=== PATIENT | female | born 1955 | race Caucasian/White ===

== ENCOUNTER 2016-08-14 13:36 | Emergency (ER) | payer OTHER ==
[2016-08-14 14:07] VITALS: BP 114/75
[2016-08-14] MEDS ORDERED: Cephalexin CAP* 500 MG PO ONE (14:45)
--- NOTE | 2016-08-14 14:54 | UC ---
Complaint Female HPI - HPI Summary HPI Summary: 60 yo female with a hx of frequent UTIs presents with concerns of UTI (some incontenence and foul smelling urine) Had bladder stones removed in the fall no f/c some nausea no back or belly pain no hx pyelo - History Of Current Complaint Chief Complaint: UCGU Stated Complaint: UTI SYMPTOMS Time Seen by Provider: 08/14/16 14:36 Hx Obtained From: Patient Hx Last Menstrual Period: NA Onset/Duration: Sudden Onset, Gradual Onset Timing: Constant Severity Initially: Mild Severity Currently: Mild Pain Intensity: 0 Pain Scale Used: 0-10 Numeric Aggravating Factor(s): Nothing Alleviating Factor(s): Nothing Associated Signs And Symptoms: Positive: Nausea Related Hx: Similar Episode/Dx as: - UTI - Allergies/Home Medications Allergies/Adverse Reactions: Allergies Allergy/AdvReac Type Severity Reaction Status Date / Time Latex Allergy Intermediate Rash Verified 02/22/14 19:40 Codeine Allergy Unknown Verified 11/29/14 12:30 Reaction Details Methylphenidate AdvReac hyper Verified 02/22/14 19:40 [From Ritalin] depakote generic AdvReac See Comment Uncoded 02/22/14 19:40 PMH/Surg Hx/FS Hx/Imm Hx Previously Healthy: Yes Endocrine History Of: Reports: Thyroid Disease - hypo Denies: Diabetes Cardiovascular History Of: 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 Bladder Repair. tonsils. throidectomy - half - Family History Known Family History: Positive: Hypertension, Other - colon CA - Social History Alcohol Use: Rare Substance Use Type: None Smoking Status (MU): Never Smoked Tobacco Have You Smoked in the Last Year: No - Immunization History Most Recent Influenza Vaccination: fall 2013 Review of Systems Constitutional: Negative Skin: Negative Eyes: Negative ENT: Negative Respiratory: Negative Cardiovascular: Negative Gastrointestinal: Negative Genitourinary: Negative Motor: Negative Neurovascular: Negative Musculoskeletal: Negative Neurological: Negative Psychological: Negative All Other Systems Reviewed And Are Negative: Yes Physical Exam Triage Information Reviewed: Yes Appearance: Well-Appearing, No Pain Distress, Well-Nourished Vital Signs: Initial Vital Signs Temp 98.3 F 08/14/16 14:04 Pulse 76 02/04/17 14:04 Resp 16 08/14/16 14:04 BP 114/75 08/14/16 14:04 Pulse Ox 98 08/14/16 14:04 Eye Exam: Normal Eyes: Positive: Conjunctiva Clear ENT: Positive: Hearing grossly normal. Negative: TMs normal, Trismus, Muffled/ hoarse voice Dental: Negative: Dental Fracture @ Neck: Positive: Supple, Nontender Respiratory: Positive: Lungs clear, Normal breath sounds, No respiratory distress Cardiovascular: Positive: No Murmur Abdomen Description: Positive: Nontender. Negative: CVA Tenderness (R), CVA Tenderness (L) Bowel Sounds: Positive: Present Musculoskeletal: Positive: ROM Intact, No Edema Neurological: Positive: Alert, Other: - cog wheeling rigidity Psychological Exam: Normal Skin Exam: Normal Complaint Female Dx - Differential Dx/Diagnosis Provider Diagnoses: acute cystitis Discharge - Discharge Plan Condition: Stable Disposition: HOME Prescriptions: Cephalexin CAP* [Keflex CAP*] 500 mg PO BID #14 cap Patient Education Materials: Urinary Tract Infection in Women (ED) Referrals: Missael Mayberry MD [Primary Care Provider] - 4 Days (if not better) Additional Instructions: a urine culture is pending recheck for new or worsening symptoms
== END 2016-08-14 14:59 | disposition home or self-care (01) ==
LOC: UCEAST 13:36
DX: N30.00 Acute cystitis without hematuria (principal); R11.0 Nausea; Z87.440 Personal history of urinary (tract) infections; Z88.5 Allergy status to narcotic agent
CPT/HCPCS: 81002; 87077; 87086; 87186; 99202; A9270-GY; G0463

== ENCOUNTER 2017-08-25 19:09 | Emergency (ER) | payer OTHER ==
[2017-08-25 20:03] VITALS: BP 103/67
[2017-08-25] MEDS ORDERED: Sulfamethox/Trimethoprim DS 800/160* TAB PO ONE (21:58)
--- NOTE | 2017-08-28 17:30 | UC ---
Complaint Female HPI - History Of Current Complaint Chief Complaint: UCGU Stated Complaint: UTI Time Seen by Provider: 08/25/17 20:53 Hx Last Menstrual Period: hysterectomy Pain Intensity: 0 Pain Scale Used: 0-10 Numeric - Allergies/Home Medications Allergies/Adverse Reactions: Allergies Allergy/AdvReac Type Severity Reaction Status Date / Time MS Latex [Latex] Allergy Intermediate Rash Verified 08/25/17 20:04 MS Codeine [Codeine] Allergy Unknown Verified 08/25/17 20:04 Reaction Details nitrofurantoin Allergy See Comment Verified 08/25/17 20:04 [From Macrobid] MS Methylphenidate AdvReac hyper Verified 08/25/17 20:04 [From Ritalin] depakote generic AdvReac See Comment Uncoded 02/22/14 19:40 PMH/Surg Hx/FS Hx/Imm Hx - Surgical History Surgical History: Yes Surgery Procedure, Year, and Place: Hysterectomy. Bladder Repair. tonsils. throidectomy - half - Family History Known Family History: Positive: Hypertension, Other - colon CA - Social History Alcohol Use: Rare Substance Use Type: None Smoking Status (MU): Never Smoked Tobacco Have You Smoked in the Last Year: No - Immunization History Most Recent Influenza Vaccination: fall 2013 Physical Exam Vital Signs: Initial Vital Signs Temp 97.5 F 08/25/17 19:57 Pulse 82 08/25/17 19:57 Resp 16 08/25/17 19:57 BP 103/67 08/25/17 19:57 Pulse Ox 99 08/25/17 19:57 Discharge - Discharge Plan Condition: Stable Disposition: HOME Prescriptions: Sulfamethox/Trimethoprim DS* [Bactrim DS 800/160 TAB*] 1 tab PO BID 7 Days #14 tab Patient Education Materials: Urinary Tract Infection in Women (ED) Referrals: Missael Mayberry MD [Primary Care Provider] - Additional Instructions: as tolerated, Follow up with urology allison
--- NOTE | 2017-08-28 17:32 | UC ---
- Progress Note Progress Note: Urine culture with Aerococcus - most susceptible to PCN. Have her stop Bactrim and start Augmentin 1 tab BID for 7 days. Keep f/u with urology.
--- NOTE | 2017-09-01 15:43 | UC ---
Complaint Female HPI - HPI Summary HPI Summary: Pt p/w dysuria, urinary frequency and urgencyx 1 week. Denies f/c - History Of Current Complaint Chief Complaint: UCGU Stated Complaint: UTI Time Seen by Provider: 08/25/17 20:53 Hx Obtained From: Patient Hx Last Menstrual Period: hysterectomy ?: No Pain Intensity: 0 Pain Scale Used: 0-10 Numeric - Allergies/Home Medications Allergies/Adverse Reactions: Allergies Allergy/AdvReac Type Severity Reaction Status Date / Time MS Latex [Latex] Allergy Intermediate Rash Verified 08/25/17 20:04 MS Codeine [Codeine] Allergy Unknown Verified 08/25/17 20:04 Reaction Details nitrofurantoin Allergy See Comment Verified 08/25/17 20:04 [From Macrobid] MS Methylphenidate AdvReac hyper Verified 08/25/17 20:04 [From Ritalin] depakote generic AdvReac See Comment Uncoded 02/22/14 19:40 PMH/Surg Hx/FS Hx/Imm Hx - Additional Past Medical History Additional PMH: none - Surgical History Surgical History: Yes Surgery Procedure, Year, and Place: Hysterectomy. Bladder Repair. tonsils. throidectomy - half - Family History Known Family History: Positive: Hypertension, Other - colon CA - Social History Alcohol Use: Rare Substance Use Type: None Smoking Status (MU): Never Smoked Tobacco Have You Smoked in the Last Year: No - Immunization History Most Recent Influenza Vaccination: fall 2013 Review of Systems Constitutional: Negative Skin: Negative Eyes: Negative ENT: Negative Respiratory: Negative Cardiovascular: Negative Gastrointestinal: Negative Genitourinary: Dysuria, Frequency, Urgency Motor: Negative Neurovascular: Negative Musculoskeletal: Negative Neurological: Negative Psychological: Negative Is Patient Immunocompromised?: No All Other Systems Reviewed And Are Negative: Yes Physical Exam Triage Information Reviewed: Yes Vital Signs: Initial Vital Signs Temp 36.4 C 08/25/17 19:57 Pulse 82 08/25/17 19:57 Resp 16 08/25/17 19:57 BP 103/67 08/25/17 19:57 Pulse Ox 99 08/25/17 19:57 Eye Exam: Normal ENT Exam: Normal Dental Exam: Normal Neck exam: Normal Neck: Positive: 1 Respiratory Exam: Normal Cardiovascular Exam: Normal Abdomen Description: Positive: Soft. Negative: CVA Tenderness (R), CVA Tenderness (L) Musculoskeletal Exam: Normal Neurological Exam: Normal Psychological Exam: Normal Skin Exam: Normal Complaint Female Dx - Differential Dx/Diagnosis Provider Diagnoses: UTI Discharge - Discharge Plan Condition: Stable Disposition: HOME Prescriptions: Amoxicillin/Clavulanate TAB* [Augmentin TAB 875*] 875 mg PO BID #14 tab Patient Education Materials: Urinary Tract Infection in Women (ED) Referrals: Missael Mayberry MD [Primary Care Provider] - Additional Instructions: as tolerated, Follow up with urology allison
== END 2017-08-25 22:15 | disposition home or self-care (01) ==
LOC: UCEAST 19:09
DX: N39.0 Urinary tract infection, site not specified (principal); B96.89 Other specified bacterial agents as the cause of diseases classified elsewhere; Z90.710 Acquired absence of both cervix and uterus; Z88.8 Allergy status to other drugs, medicaments and biological substances; Z88.1 Allergy status to other antibiotic agents; Z91.040 Latex allergy status
CPT/HCPCS: 81003; 87077; 87086; 99212; A9270-GY; G0463

== ENCOUNTER 2017-11-07 19:06 | Emergency (ER) | payer OTHER ==
[2017-11-07 19:13] VITALS: BP 126/76
--- NOTE | 2017-11-07 19:54 | UC ---
Complaint Female HPI - HPI Summary HPI Summary: 62 yo female with urinary incontinence and urgency x weeks worse today some dysuria no f/c nausea no vomiting - History Of Current Complaint Chief Complaint: UCGU Stated Complaint: UTI Time Seen by Provider: 11/07/17 19:24 Hx Obtained From: Patient Hx Last Menstrual Period: hysterectomy Onset/Duration: Gradual Onset Timing: Constant Severity Initially: Mild Severity Currently: Moderate Pain Intensity: 0 Pain Scale Used: 0-10 Numeric Aggravating Factor(s): Urination - Allergies/Home Medications Allergies/Adverse Reactions: Allergies Allergy/AdvReac Type Severity Reaction Status Date / Time codeine Allergy Unknown Unknown Verified 11/07/17 19:14 Reaction Details divalproex sodium Allergy See Comment Verified 11/07/17 19:17 [From Depakote] latex Allergy Rash Verified 11/07/17 19:14 methylphenidate Allergy HYPER, Verified 11/07/17 19:17 ANXIETY, CONFUSION nitrofurantoin Allergy See Comment Verified 11/07/17 19:17 [From Macrobid] Home Medications: Home Medications Tamsulosin CAP* [Flomax CAP*] 0.4 mg PO DAILY 11/07/17 [History Confirmed ] PMH/Surg Hx/FS Hx/Imm Hx Previously Healthy: Yes - Surgical History Surgical History: Yes Surgery Procedure, Year, and Place: Hysterectomy. Bladder Repair. tonsils. throidectomy - half - Family History Known Family History: Positive: Cardiac Disease, Hypertension, Diabetes, Other - colon CA - Social History Alcohol Use: None Substance Use Type: None Smoking Status (MU): Never Smoked Tobacco Have You Smoked in the Last Year: No - Immunization History Most Recent Influenza Vaccination: fall 2013 Review of Systems Constitutional: Negative Skin: Negative Eyes: Negative ENT: Negative Respiratory: Negative Cardiovascular: Negative Gastrointestinal: Nausea Genitourinary: Dysuria, Frequency, Urgency Motor: Negative Neurovascular: Negative Musculoskeletal: Negative Neurological: Negative Psychological: Negative Is Patient Immunocompromised?: No All Other Systems Reviewed And Are Negative: Yes Physical Exam Triage Information Reviewed: Yes Appearance: Well-Appearing, No Pain Distress, Well-Nourished Vital Signs: Initial Vital Signs Temp 99.0 F 11/07/17 19:09 Pulse 78 11/07/17 19:09 Resp 16 11/07/17 19:09 BP 126/76 11/07/17 19:09 Pulse Ox 99 11/07/17 19:09 Vital Signs Reviewed: Yes Eyes: Positive: Conjunctiva Clear ENT: Positive: Uvula midline. Negative: Nasal congestion, Nasal drainage, Muffled voice Neck: Positive: Supple, Nontender, No Lymphadenopathy Respiratory: Positive: Lungs clear, Normal breath sounds, No respiratory distress Cardiovascular: Positive: RRR, No Murmur Abdomen Description: Positive: Soft. Negative: Nontender - some suprapubic tenderness, CVA Tenderness (R), CVA Tenderness (L) Bowel Sounds: Positive: Present Musculoskeletal: Positive: ROM Intact, No Edema Neurological: Positive: Alert Psychological Exam: Normal Skin Exam: Normal Diagnostics - Laboratory Diagnostic Studies Completed/Ordered: ua (+) leuks (+) nitrite Complaint Female Dx - Differential Dx/Diagnosis Provider Diagnoses: acute cystitis Discharge - Sign-Out/Discharge Documenting (check all that apply): Discharge/Admit/Transfer - Discharge Plan Condition: Stable Disposition: HOME Prescriptions: Cephalexin CAP* [Keflex CAP*] 500 mg PO BID #14 cap Phenazopyridine TAB* [Pyridium TAB*] 100 mg PO TID #6 tab Patient Education Materials: Urinary Tract Infection in Women (DC) Referrals: Missael Mayberry MD [Primary Care Provider] - 3 Days (if not better) Additional Instructions: urine culture pending - Billing Disposition and Condition Condition: STABLE Disposition: HOME
--- NOTE | 2017-11-10 11:10 | UC ---
- Progress Note Progress Note: + UTI pt on Cephalexin await sensitivity Ljj 11/10/2017 No change Discharge - Sign-Out/Discharge Documenting (check all that apply): Discharge/Admit/Transfer - Discharge Plan Condition: Stable Disposition: HOME Prescriptions: Cephalexin CAP* [Keflex CAP*] 500 mg PO BID #14 cap Phenazopyridine TAB* [Pyridium TAB*] 100 mg PO TID #6 tab Patient Education Materials: Urinary Tract Infection in Women (DC) Referrals: Missael Mayberry MD [Primary Care Provider] - 3 Days (if not better) Additional Instructions: urine culture pending - Billing Disposition and Condition Condition: STABLE Disposition: HOME
== END 2017-11-07 19:48 | disposition home or self-care (01) ==
LOC: UCEAST 19:06
DX: N30.00 Acute cystitis without hematuria (principal); B95.7 Other staphylococcus as the cause of diseases classified elsewhere; Z88.5 Allergy status to narcotic agent; Z88.8 Allergy status to other drugs, medicaments and biological substances; Z91.040 Latex allergy status
CPT/HCPCS: 81003; 87077; 87086; 87186; 99212; G0463

== ENCOUNTER 2018-12-29 15:26 | Emergency (ER) | payer OTHER ==
[2018-12-29 16:07] VITALS: BP 109/72
--- NOTE | 2018-12-29 17:55 | UC ---
Abdominal Pain Female HPI - HPI Summary HPI Summary: PT presents with urinary urgency, frequency x 3 days no hematuria. no abd pain no n/v no back pain no fever, chills, rash h/o recurrent UTI and bladder stone meds reviewed - History of Current Complaint Chief Complaint: UCGU Stated Complaint: BURNING URINATION Time Seen by Provider: 12/29/18 17:17 Hx Obtained From: Patient Hx Last Menstrual Period: hysterectomy Severity Initially: Mild Severity Currently: Mild Pain Intensity: 5 Pain Scale Used: 0-10 Numeric Allergies/Adverse Reactions: Allergies Allergy/AdvReac Type Severity Reaction Status Date / Time codeine Allergy Unknown Unknown Verified 12/29/18 16:07 Reaction Details divalproex sodium Allergy See Comment Verified 12/29/18 16:07 [From Depakote] latex Allergy Rash Verified 12/29/18 16:07 methylphenidate Allergy HYPER, Verified 12/29/18 16:07 ANXIETY, CONFUSION nitrofurantoin Allergy See Comment Verified 12/29/18 16:07 [From Macrobid] Home Medications: Home Medications QUEtiapine TAB* [Seroquel 25 MG TAB*] 50 mg PO BEDTIME 12/29/18 [History Confirmed 12/29/18] PMH/Surg Hx/FS Hx/Imm Hx Previously Healthy: Yes Other GI/ History: bladder stone - Surgical History Surgical History: Yes Surgery Procedure, Year, and Place: Hysterectomy. Bladder Repair. tonsils. throidectomy - half - Family History Known Family History: Positive: Cardiac Disease, Hypertension, Diabetes, Other - colon CA, Non-Contributory - Social History Alcohol Use: None Substance Use Type: None Smoking Status (MU): Never Smoked Tobacco Have You Smoked in the Last Year: No - Immunization History Most Recent Influenza Vaccination: fall 2013 Review of Systems All Other Systems Reviewed And Are Negative: Yes Genitourinary: Positive: Dysuria, Frequency, Urgency Physical Exam - Summary Physical Exam Summary: Vital Signs Reviewed: Yes A+Ox3, no distress Eyes: Conjunctiva Clear, PEGGY. EOM intact and full ENT: Hearing grossly normal left TM with cerumen - manual debridement, right TM wnl. turbinates inflammed, mmoist, uvula midline, no exudate, no erythema Neck: Positive: Supple Respiratory: Positive: No respiratory distress, No accessory muscle use + CTA throughout no w/r Cardiovascular: RRR nl s1, s2 no m/r CBT <2 sec abd soft + BS nt/nd no guarding, no distension, no CVA Musculoskeletal Exam: GIRON x 4 without difficulty Strength Intact, ROM Intact Neurological: Positive: Alert, + sensation throughout Psychological: Positive: Normal Response To Family Skin: Positive: no rash, no ecchymosis Triage Information Reviewed: Yes Vital Signs: Initial Vital Signs Temp 97.7 F 12/29/18 16:02 Pulse 77 12/29/18 16:02 Resp 12 12/29/18 16:02 BP 109/72 12/29/18 16:02 Pulse Ox 99 12/29/18 16:02 Abd Pain Female Course/Dx - Course Course Of Treatment: PT with 3 days progressive urinary sx pt with h/o similar urinalysis consist with UTI will culture abx hydrate mortin/apap f/u with PCP manual disimpact cerumen from left ear TM visualized - Differential Dx/Diagnosis Provider Diagnosis: UTI (urinary tract infection), Cerumen impaction Discharge - Sign-Out/Discharge Documenting (check all that apply): Patient Departure All imaging exams completed and their final reports reviewed: No Studies - Discharge Plan Condition: Stable Disposition: HOME Prescriptions: Phenazopyridine TAB* [Pyridium 100 mg TAB*] 100 mg PO TID PRN #9 tab PRN Reason: burning with urination Sulfamethox/Trimethoprim DS* [Bactrim DS 800/160 TAB*] 1 tab PO BID #20 tab Patient Education Materials: Urinary Tract Infection in Women (ED), Cerumen Impaction (ED) Referrals: Missael Mayberry MD [Primary Care Provider] - Additional Instructions: - stay well hydrated - drink plenty of non-alcoholic, non caffinated beverages - your urine will be further tested - if you require any changes to your treatment, we will contact you - this usually take 2 days - Contact your primary doctor to arrange a follow-up appointment next week. Contact your doctor or return with questions or concerns - Take your antibiotics exactly as prescribed until gone - Take pyridium as prescribed for discomfort. This will make your urine blaze orange - this is normal - Okay to alternate ibuprofen (Advil, Motrin) and Tylenol every 3 hours for pain. Take with food - Call your doctor to schedule a follow-up appointment - Billing Disposition and Condition Condition: STABLE Disposition: Home
--- NOTE | 2018-12-31 09:06 | UC ---
- Progress Note Progress Note: Patient lab results reviewed today Urine culture preliminary: Organisms one is pseudomonas aeruginosa more than 100,000 CFU per mL Patient is on Bactrim DS which might not cover Pseudomonas. patient is allergic to nitrofurantoin but not to fluoroquinolones RN to call the patient and advise patient to start on ciprofloxacin which will likely cover Pseudomonas. Stop Bactrim. Information reviewed on [employer] Date: Fluoroquinolones are the only class of antibiotics with antipseudomonal activity that have an oral formulation. There is increased risk of QT prolongation as patient is on quetiapine with increased risk of torsades arrythmia . This is discussed with the patient . We can wait until final culture reports for pseuodomonas or opt for iv antibiotics at hospital . We called the lab and they advised that the sensitivity testing will be available in 10 min . Final sensitivity report: It is sensitive to Cipro I spoke to the pharmacist at the hospital with [facility] and she advised that it is a class B interaction and likely safe for 1 week of ciprofloxacin. This should be discussed with the patient though . I will prescribe the antibiotic to the pharmacy. Course/Dx - Diagnoses Provider Diagnoses: UTI (urinary tract infection), Cerumen impaction Discharge - Sign-Out/Discharge Documenting (check all that apply): Post-Discharge Follow Up All imaging exams completed and their final reports reviewed: No Studies - Discharge Plan Condition: Stable Disposition: HOME Prescriptions: Phenazopyridine TAB* [Pyridium 100 mg TAB*] 100 mg PO TID PRN #9 tab PRN Reason: burning with urination Sulfamethox/Trimethoprim DS* [Bactrim DS 800/160 TAB*] 1 tab PO BID #20 tab Patient Education Materials: Urinary Tract Infection in Women (ED), Cerumen Impaction (ED) Referrals: Missael Mayberry MD [Primary Care Provider] - Additional Instructions: - stay well hydrated - drink plenty of non-alcoholic, non caffinated beverages - your urine will be further tested - if you require any changes to your treatment, we will contact you - this usually take 2 days - Contact your primary doctor to arrange a follow-up appointment next week. Contact your doctor or return with questions or concerns - Take your antibiotics exactly as prescribed until gone - Take pyridium as prescribed for discomfort. This will make your urine blaze orange - this is normal - Okay to alternate ibuprofen (Advil, Motrin) and Tylenol every 3 hours for pain. Take with food - Call your doctor to schedule a follow-up appointment - Billing Disposition and Condition Condition: STABLE Disposition: Home
== END 2018-12-29 18:10 | disposition home or self-care (01) ==
LOC: UCEAST 15:26
DX: N39.0 Urinary tract infection, site not specified (principal); H61.22 Impacted cerumen, left ear; Z88.5 Allergy status to narcotic agent; Z91.040 Latex allergy status; Z87.440 Personal history of urinary (tract) infections
CPT/HCPCS: 81003; 87077; 87086; 87186; 99212; G0463

== ENCOUNTER 2019-05-05 14:17 | Emergency (ER) | payer OTHER ==
--- OUTSIDE RECORDS SUMMARY | 2019-05-05 14:22 | XMS REPORT | Summary of Care ---
:1955 Author Organization [facility] Address [address] [place] [address] Care Team Providers Name Role Phone Missael Mayberry David Primary Care Provider Reason for Visit Reason Comments Sore Throat c/o sore throat, nonproductive cough and chest congestion. Also c/ o sinusitits, nasal congestion and facial pain. Denies fever. Encounter Details Date Type Department Care Team Description 04/14/2019 Office Visit [facility] Adryan Hendricks MD Acute non-recurrent Practice [address] sinusitis, unspecified [address] [place] [place] [address] location (Primary Dx) [place] [address] [phone] Allergies Active Allergy Reactions Severity Noted Date Comments Codeine 01/30/2007 urticaria Latex 01/30/2007 urticaria Nitrofurantoin Other 01/13/2016 Family hx pulmonary fibrosis Methylphenidate Hcl CHICK GRADER Reaction 08/22/2009 documented as of this encounter (statuses as of 04/14/2019) Medications Medication Sig Dispensed Refills Start Date End Date Status M-Vit Oral Tab Take 1 Tab by 0 Active mouth TWICE DAILY. clonazePAM (KLONOPIN) Take 2 mg by mouth 0 04/28/2011 Active 2 MG Oral Tab EVERY BEDTIME. Divalproex Sodium Take 750 mg by 0 Active (DEPAKOTE PO) mouth EVERY BEDTIME. quetiapine (SEROQUEL) Take 50 mg by 0 Active 25 MG Oral Tab mouth EVERY BEDTIME. cetirizine (ZYRTEC Take 10 mg by 0 Active ALLERGY) 10 MG Oral mouth NEEDED. Tab ibuprofen (MOTRIN) 200 Take 400 mg by 0 Active MG Oral Tab mouth NEEDED. fluticasone (FLONASE) [place] 2 Sprays in 1 Bottle 0 03/02/2014 Active 50 MCG/ACT Nasal nose DAILY. Suspension acidophilus/pectin Take 1 Cap by 30 Cap 6 11/26/2014 Active (LACTOBACILLUS) Oral mouth DAILY. Cap Tamsulosin HCl TAKE ONE CAPSULE 60 Cap 6 01/25/2017 Active (FLOMAX) 0.4 MG Oral BY MOUTH EVERY DAY Cap topiramate (TOPAMAX) TAKE ONE TABLET BY 30 Tab 1 04/24/2018 Active 100 MG Oral Tab MOUTH EVERY MORNING Additional information Patient taking differently: TAKE ONE TABLET BY MOUTH EVERY Bedtime, Reported on 07/13/2018 10:11 AM Tamsulosin HCl TAKE ONE CAPSULE 90 Cap 4 09/12/2018 Active (FLOMAX) 0.4 MG Oral BY MOUTH EVERY Cap DAY ibuprofen (MOTRIN) Take 1 Tab by 120 Tab 0 09/14/2018 Active 600 MG Oral Tab mouth EVERY SIX HOURS NEEDED (pain). tobramycin (TOBREX, Place 1 Drop in 1 Bottle 0 12/15/2018 Active TOBRALCON) 0.3 % right eye EVERY Ophthalmic Solution FOUR HOURS. levothyroxine TAKE 1 TABLET BY 30 Tab 3 04/05/2019 Active (SYNTHROID) 25 MCG MOUTH DAILY Oral Tab BEFORE BREAKFAST amoxicillin (AMOXIL, Take 1 Tab by 14 Tab 0 04/14/2019 Active POLYMOX, TRIMOX) 875 mouth TWICE MG Oral Tab DAILY. amoxicillin-clavulani Take 1 Tab by 20 Tab 0 12/15/2018 Discontinued c acid (AUGMENTIN 875 mouth TWICE 019 (Patient stopped MG) 875-125 MG Oral DAILY. the medication) Tab fluconazole Take 1 Tab by 2 Tab 0 12/15/2018 Discontinued (DIFLUCAN) 150 MG mouth DAILY. 019 (Patient stopped Oral Tab the medication) documented as of this encounter (statuses as of 04/14/2019) Active Problems Problem Noted Date Bladder calculi 03/09/2016 right wrist arthroscopy with debridement chondromalacia and debridement of TFCC tear, open right ulnar shortening Parkinson disease 02/09/2010 Overview: Dr Edwards : Dx 12/2009 Mixed bipolar disorder 08/22/2009 Overview: Dr Radha [facility] Hospitalized last 2006-suicidal ideation Hypothyroidism 08/22/2009 Overview: Pt sees Dr Law Murray ZARATE Seizure, petit mal 08/22/2009 Overview: 2006--Dr Page neurology [place] H/O: hysterectomy 08/22/2009 Overview: 1980 Bilateral ovary removal 1990s Migraine 08/22/2009 Fibroid tumor 08/22/2009 Colon polyps 08/22/2009 Overview: S/p 5 polyps removed 2006 Osteopenia 08/22/2009 documented as of this encounter (statuses as of 04/14/2019) Resolved Problems Problem Noted Date Resolved Date Wrist pain 09/09/2011 12/23/2011 Tremor 08/22/2009 12/23/2011 Overview: Hand Tremors, Dr Kaylee ZARATE documented as of this encounter (statuses as of 04/14/2019) Immunizations Name Administration Dates Next Due Celestone Soluspan(12mg) 08/20/2013, 08/20/2013, 10/13/2011 Influenza (IM) Preservative Free 07/13/2018, 05/01/2014 documented as of this encounter Social History Tobacco Use Types Packs/Day Years Used Date Never Smoker Smokeless Tobacco: Never Used Comments: lifetime Alcohol Use Drinks/Week oz/Week Comments No 0-1 Glasses of wine 0.0 Sex Assigned at Date Recorded Not on file Job Start Date Occupation Industry Not on file Not on file Not on file Travel History Travel Start Travel End No recent travel history available. documented as of this encounter Last Filed Vital Signs Vital Sign Reading Time Taken Comments Blood Pressure 112/70 04/14/2019 11:15 AM EDT Pulse 80 04/14/2019 11:15 AM EDT Temperature 36.5 04/14/2019 11:15 AM EDT C (97.7 F) Respiratory Rate 18 04/14/2019 11:15 AM EDT Oxygen Saturation 96% 04/14/2019 11:15 AM EDT Inhaled Oxygen Concentration - - Weight 51.7 kg (114 lb) 04/14/2019 11:15 AM EDT Height 162.6 cm (5' 4") 04/14/2019 11:15 AM EDT Body Mass Index 19.57 04/14/2019 11:15 AM EDT documented in this encounter Progress Notes Adryan Hendricks MD - 04/14/2019 11:20 AM EDT PATIENT: Nazanin Sosa : 1955 DATE OF SERVICE: 04/14/2019 CHIEF COMPLAINT: Chief Complaint Patient presents with Sore Throat c/o sore throat, nonproductive cough and chest congestion. Also c/o sinusitits , nasal congestion and facial pain. Denies fever. Subjective HISTORY OF PRESENT ILLNESS: Nazanin Sosa is a 63-y.o. female. Uri symptoms [address], sinus congestion green mucus, NOGUEIRA today , minor cough , no fever . Gets sinus infections 2 x a year. , not using her zyrtec or her flonase. Past Medical History: Diagnosis Date Colon polyps 08/22/2009 Endocrine problem Exertional dyspnea 7.23.07 Fractures Generalized convulsive epilepsy History of breast surgery implants Mental disorder NERVE Other postprocedural status(V45.89) ROUTINE IMPLANTS ? 1994 Persistent mental disorders due to conditions classified elsewhere bipolar PONV (postoperative nausea and vomiting) Postmenopausal right wrist arthroscopy with debridement chondromalacia and debridement of TFCC tear, open right ulnar shortening 05/29/2012 Unspecified functional disorder of stomach Family History Problem Relation Age of Onset Asthma Mother Cancer Mother colon ca, age 75 Arthritis Mother Heart Mother Psychiatry Daughter Thyroid Daughter Pulmonary Father idiopathic pulmonary fibrosis Heart Disease Unknown family history Alcohol/Drug Brother Heart Brother Psychiatry Brother Psychiatry Brother Stroke Paternal Grandmother Thyroid Maternal Aunt Current Outpatient Medications Medication Sig acidophilus/pectin (LACTOBACILLUS) Oral Cap Take 1 Cap by mouth DAILY. cetirizine (ZYRTEC ALLERGY) 10 MG Oral Tab Take 10 mg by mouth NEEDED. clonazePAM (KLONOPIN) 2 MG Oral Tab Take 2 mg by mouth EVERY BEDTIME. Divalproex Sodium (DEPAKOTE PO) Take 750 mg by mouth EVERY BEDTIME. fluticasone (FLONASE) 50 MCG/ACT Nasal Suspension [place]unkie 2 Sprays in nose DAILY. ibuprofen (MOTRIN) 200 MG Oral Tab Take 400 mg by mouth NEEDED. ibuprofen (MOTRIN) 600 MG Oral Tab Take 1 Tab by mouth EVERY SIX HOURS NEEDED (pain). levothyroxine (SYNTHROID) 25 MCG Oral Tab TAKE 1 TABLET BY MOUTH DAILY BEFORE BREAKFAST M-Vit Oral Tab Take 1 Tab by mouth TWICE DAILY. quetiapine (SEROQUEL) 25 MG Oral Tab Take 50 mg by mouth EVERY BEDTIME. Tamsulosin HCl (FLOMAX) 0.4 MG Oral Cap TAKE ONE CAPSULE BY MOUTH EVERY DAY Tamsulosin HCl (FLOMAX) 0.4 MG Oral Cap TAKE ONE CAPSULE BY MOUTH EVERY DAY tobramycin (TOBREX, TOBRALCON) 0.3 % Ophthalmic Solution Place 1 Drop in right eye EVERY FOURHOURS. topiramate (TOPAMAX) 100 MG Oral Tab TAKE ONE TABLET BY MOUTH EVERY MORNING (Patient taking differently: TAKE ONE TABLET BY MOUTH EVERY Bedtime) No current facility-administered medications for this visit. Allergies Allergen Reactions Codeine urticaria Latex urticaria Macrobid [Nitrofurantoin] Other Family hx pulmonary fibrosis Ritalin [Methylphenidate Hcl] CHICK GRADER Reaction Social History Socioeconomic History Marital status: Spouse name: Not on file Number of children: Not on file Years of education: Not on file Highest education level: Not on file Occupational History Not on file Social Needs Financial resource strain: Not on file Food insecurity: Worry: Not on file Inability: Not on file Transportation needs: Medical: Not on file Non-medical: Not on file Tobacco Use Smoking status: Never Smoker Smokeless tobacco: Never Used Tobacco comment: lifetime Substance and Sexual Activity Alcohol use: No Alcohol/week: 0.0 standard drinks Drug use: No Sexual activity: Not on file Lifestyle Physical activity: Days per week: Not on file Minutes per session: Not on file Stress: Not on file Relationships Social connections: Talks on phone: Not on file Gets together: Not on file Attends episcopalian service: Not on file Active member of club or organization: Not on file Attends meetings of clubs or organizations: Not on file Relationship status: Not on file Intimate partner violence: Fear of current or ex partner: Not on file Emotionally abused: Not on file Physically abused: Not on file Forced sexual activity: Not on file Other Topics Concern Back Care Not Asked Bike Helmet Not Asked Blood Transfusions No Caffeine Concern Not Asked Exercise No Hobby Hazards Not Asked International Travel Not Asked Service No Occupational Exposure Not Asked Seat Belt Not Asked Self-Exams Not Asked Sleep Concern Yes Special Diet Not Asked Stress Concern Yes Weight Concern Yes Comment: has recently gained weight Social History Narrative and lives with daughter in 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 Physical Exam Vitals signs reviewed. Constitutional: Appearance: She is not ill-appearing or toxic-appearing. HENT: Ears: Comments: Ears - bilateral TM's and external ear canals normal, right external ear normal, left externalear normal Mouth/Throat: Mouth: No oral lesions. Neck: Musculoskeletal: Neck supple. Pulmonary: Effort: Pulmonary effort is normal. No respiratory distress. Breath sounds: Normal breath sounds. Lymphadenopathy: Cervical: No cervical adenopathy. ASSESSMENT / IMPRESSION: ICD-9-CM ICD-10-CM 1. Acute non-recurrent sinusitis, unspecified location 461.9 J01.90 Will give amox Call if not better Plan Author: Adryan Hendricks MD 04/14/2019 11:38 documented in this encounter Plan of Treatment Date Type Specialty Care Team Description 07/17/2019 Office Visit Urology Michell Chairez MD [address] [place] [id number] Health Maintenance Due Date Last Done Comments DEPRESSION SCREENING 1969 ZOSTER IMMUNIZATION SERIES 09/27/2007 (1 of 2) INFLUENZA VACCINE (#1) 2019 07/13/2018, 05/01/2014 MAMMOGRAM (SCREENING) 08/02/2019 08/02/2018, 06/28/2016, 06/24/2014, Additional history exists COLONOSCOPY SCREENING 09/24/2019 09/23/2014, 09/02/2009, 02/08/2007 (Previously completed) LIPID DISORDER SCREENING 07/13/2023 07/13/2018, 06/30/2017, 06/21/2016 HPV IMMUNIZATION SERIES Aged Out No longer eligible based on patient's age to complete this topic MENINGOCOCCAL VACCINE IMM Aged Out No longer eligible based on patient's age to complete this topic PNEUMOCOCCAL 0-64 YRS Aged Out No longer eligible based on patient's age to complete this topic documented as of this encounter Implants Implanted Type Area Dynamics Ax Consultant Device Shelf Model / Identifier Expiration Serial / Lot Date Ulnar Bone Plate Right: [facility] [id number] / Implanted: Qty: 1 on 04/28/2012 at [facility] [employer] / [id number] Rayhack Lock Screw 2.7 X 14mm Right: [facility] [id number] / Implanted: Qty: 2 on 04/28/2012 at [facility] [employer] / [id number] Rayhack Lock Screw 2.5 X 115 Right: [facility] [id number] / Implanted: Qty: 4 on 04/28/2012 at [facility] [employer] / [id number] Rayhack Lock Screw 3.5 X 18 Right: [facility] [id number] / Implanted: Qty: 2 on 04/28/2012 at [facility] [employer] / [id number] Rayhack Lock Screw 2.7 X 16mm Right: [facility] [id number] / Implanted: Qty: 1 on 04/28/2012 at [facility] [employer] / [id number] documented as of this encounter Results Not on filedocumented in this encounter Visit Diagnoses Diagnosis Acute non-recurrent sinusitis, unspecified location - Primary documented in this encounter Guarantor Name Account Type Relation to Date of Phone Billing Patient Address Nazanin Sosa Personal/Family 1955 [phone] [address] (Home) [address] [place], [place] (Work) [address] documented as of this encounter Advance Directives Type Date Recorded 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
[2019-05-05 14:31] VITALS: BP 104/61
--- NOTE | 2019-05-05 14:56 | UC ---
Complaint Female HPI - HPI Summary HPI Summary: Patient is a 63yo female presenting with burning and frequency of urination. Patient states she gets recurrent UTIs due to her urinary retention and she sees a urologist for this. Notes mild pelvic discomfort. Patient denies blood in the urine. Denies abdominal pain. Denies n/v/d. Denies flank pain. - History Of Current Complaint Chief Complaint: UCGU Stated Complaint: URINARY Hx Obtained From: Patient Hx Last Menstrual Period: hysterectomy Onset/Duration: Gradual Onset, Lasting Days Pain Intensity: 0 - Allergies/Home Medications Allergies/Adverse Reactions: Allergies Allergy/AdvReac Type Severity Reaction Status Date / Time codeine Allergy Unknown Unknown Verified 05/05/19 14:24 Reaction Details divalproex sodium Allergy See Comment Verified 05/05/19 14:24 [From Depakote] latex Allergy Rash Verified 05/05/19 14:24 methylphenidate Allergy HYPER, Verified 05/05/19 14:24 ANXIETY, CONFUSION nitrofurantoin AdvReac See Comment Verified 05/05/19 14:24 [From Macrobid] PMH/Surg Hx/FS Hx/Imm Hx Endocrine History: Hypothyroidism GI/ History: Other - urinary retention - Surgical History Surgical History: Yes Surgery Procedure, Year, and Place: Hysterectomy. Bladder Repair. tonsilectomy. throidectomy - half - Family History Known Family History: Positive: Cardiac Disease, Hypertension, Diabetes, Other - colon CA, Non-Contributory - Social History Alcohol Use: None Substance Use Type: None Smoking Status (MU): Never Smoked Tobacco Have You Smoked in the Last Year: No - Immunization History Most Recent Influenza Vaccination: fall 2013 Review of Systems All Other Systems Reviewed And Are Negative: Yes Constitutional: Positive: Negative. Negative: Fever, Chills Respiratory: Positive: Negative Cardiovascular: Positive: Negative Gastrointestinal: Positive: Abdominal Pain - pelvic discomfort. Negative: Vomiting, Nausea Genitourinary: Positive: Dysuria, Frequency, Urgency, Vaginal/Penile Burning. Negative: Vaginal/Penile Itching, Vaginal/Penile Discharge, Vaginal/Penile Pain , Vaginal/Penile Tenderness, Ulceration/Lesion, Abnormal Bleeding Musculoskeletal: Positive: Negative Neurological: Positive: Negative Physical Exam Triage Information Reviewed: Yes Appearance: Well-Appearing, No Pain Distress, Well-Nourished Vital Signs: Initial Vital Signs Temp 97.8 F 10/26/19 14:28 Pulse 72 05/05/19 14:28 Resp 18 05/05/19 14:28 BP 104/61 05/05/19 14:28 Pulse Ox 98 05/05/19 14:28 Lab Results 05/05/19 Range/Units 14:52 POC Urine Color Yellow POC Urine Clarity Cloudy POC Urine pH 5.5 (5-9) POC Ur Specif [place] 1.025 (1.010-1.030) POC Urine Protein Trace A (Negative) POC Ur Glucose (UA) Negative (Negative) POC Urine Ketones Negative (Negative) POC Urine Blood Trace-intact A (Negative) POC Urine Nitrite Positive A (Negative) POC Urine Bilirubin Negative (Negative) POC Urine Urobilinogen 0.2 (Negative) POC U Leukocyte Esteras 3+ A (Negative) Vital Signs Reviewed: Yes Eyes: Positive: Conjunctiva Clear ENT: Positive: Hearing grossly normal Neck: Positive: Supple Respiratory Exam: Normal Respiratory: Positive: Lungs clear, Normal breath sounds, No respiratory distress Cardiovascular Exam: Normal Cardiovascular: Positive: RRR Abdominal Exam: Normal Abdomen Description: Positive: Nontender. Negative: CVA Tenderness (R), CVA Tenderness (L) Neurological: Positive: Alert Psychological: Positive: Age Appropriate Behavior Complaint Female Dx - Course Course Of Treatment: Discussed positive UA with patient. Itreated with bactrim, as she stated that is what usually works for her UTIs. Instructed to follow up with pcp or urologist if symptoms persist. Directed to the ED if symptoms worsen. Patient voiced understanding and agreed with the treatment plan. - Differential Dx/Diagnosis Provider Diagnosis: UTI (urinary tract infection) Discharge ED - Sign-Out/Discharge Documenting (check all that apply): Patient Departure All imaging exams completed and their final reports reviewed: No Studies - Discharge Plan Condition: Stable Disposition: HOME Prescriptions: Sulfamethox/Trimethoprim DS* [Bactrim DS 800/160 TAB*] 1 tab PO BID #10 tab Patient Education Materials: Urinary Tract Infection in Women (ED) Referrals: Missael Mayberry MD [Primary Care Provider] - If Needed Additional Instructions: As discussed, take Bactrim for your urinary tract infection. Make sure you are drinking plenty of fluids. Follow-up with your PCP or urologist if symptoms persist. Go to the emergency room if you experience worsening symptoms including fever, chills, lower back pain, or nausea and vomiting. - Billing Disposition and Condition Condition: STABLE Disposition: Home - Attestation Statements Provider Attestation: Per institutional requirements, I have reviewed the chart, however, I was not consulted specifically or made aware of this patient by the midlevel provider. I did not personally evaluate, interact with , or disposition this patient.
--- NOTE | 2019-05-08 10:40 | UC ---
- Progress Note Progress Note: RN to call pt. Urine cx + Klebsiella pneumonia. Sens bactrim. Continue bactrim as prescribed. Recommend f/u pcp or urologist in the next couple weeks for recheck (d/t hx frequent uti's). Seek medical attention for worse, new, or unresolved problems in the meantime. Course/Dx - Diagnoses Provider Diagnoses: UTI (urinary tract infection) Discharge ED - Sign-Out/Discharge Documenting (check all that apply): Post-Discharge Follow Up All imaging exams completed and their final reports reviewed: No Studies - Discharge Plan Condition: Stable Disposition: HOME Prescriptions: Sulfamethox/Trimethoprim DS* [Bactrim DS 800/160 TAB*] 1 tab PO BID #10 tab Patient Education Materials: Urinary Tract Infection in Women (ED) Referrals: Missael Mayberry MD [Primary Care Provider] - If Needed Additional Instructions: As discussed, take Bactrim for your urinary tract infection. Make sure you are drinking plenty of fluids. Follow-up with your PCP or urologist if symptoms persist. Go to the emergency room if you experience worsening symptoms including fever, chills, lower back pain, or nausea and vomiting. - Billing Disposition and Condition Condition: STABLE Disposition: Home
--- NOTE | 2019-05-08 15:49 | UC ---
- Progress Note Progress Note: Urine culture results are positive for greater than 100,000 Klebsiella pneumoniae. Patient was treated with Bactrim for which it is sensitive. Course/Dx - Diagnoses Provider Diagnoses: UTI (urinary tract infection) Discharge ED - Sign-Out/Discharge Documenting (check all that apply): Post-Discharge Follow Up All imaging exams completed and their final reports reviewed: No Studies - Discharge Plan Condition: Stable Disposition: HOME Prescriptions: Sulfamethox/Trimethoprim DS* [Bactrim DS 800/160 TAB*] 1 tab PO BID #10 tab Patient Education Materials: Urinary Tract Infection in Women (ED) Referrals: Missael Mayberry MD [Primary Care Provider] - If Needed Additional Instructions: As discussed, take Bactrim for your urinary tract infection. Make sure you are drinking plenty of fluids. Follow-up with your PCP or urologist if symptoms persist. Go to the emergency room if you experience worsening symptoms including fever, chills, lower back pain, or nausea and vomiting. - Billing Disposition and Condition Condition: STABLE Disposition: Home
== END 2019-05-05 15:12 | disposition home or self-care (01) ==
LOC: UCEAST 14:17
DX: N39.0 Urinary tract infection, site not specified (principal); Z88.5 Allergy status to narcotic agent; Z88.8 Allergy status to other drugs, medicaments and biological substances; Z91.040 Latex allergy status; Z88.1 Allergy status to other antibiotic agents
CPT/HCPCS: 81003; 87077; 87086; 87186; 99212; G0463